=== PATIENT | female | born 1980 | race Asian ===

== ENCOUNTER 2024-06-28 20:27 | Emergency (ER) | payer BC ==
[~2024-06-28] VITALS: Ht 167.6 cm; Wt 66.7 kg
[2024-06-28] MEDS ORDERED: KETOROLAC TROMETHAMINE INJ 30 MG/ML VIAL ONE (20:59)
[2024-06-28] MEDS ORDERED: ACETAMINOPHEN 325 MG TABLET ONE (20:59)
[2024-06-28] MEDS: KETOROLAC TROMETHAMINE INJ 30 MG/ML VIAL IM ONE (21:05)
[2024-06-28] MEDS: ACETAMINOPHEN 325 MG TABLET PO ONE (21:05)
[2024-06-28 22:05] VITALS: BP 128/84; TEMP 98.1; O2SAT 99
== END 2024-06-28 22:05 | disposition home or self-care (01) ==
LOC: ER 20:32
DX: S62.636A Displaced fracture of distal phalanx of right little finger, initial encounter for closed fracture (principal); F17.200 Nicotine dependence, unspecified, uncomplicated; Z88.0 Allergy status to penicillin; W01.0XXA Fall on same level from slipping, tripping and stumbling without subsequent striking against object, initial encounter; Y93.01 Activity, walking, marching and hiking; Y92.89 Other specified places as the place of occurrence of the external cause; Y99.8 Other external cause status
CPT/HCPCS: 29130; 73130; 99283; J1885